=== PATIENT | male | born 1945 | race Caucasian/White ===

== ENCOUNTER 2023-07-19 12:27 | Outpatient (CLI) | payer MEDICARE | END 2023-07-19 12:28 | disposition home or self-care (01) | LOC: CSHULT 12:27 | PROVIDERS: ATTEND Family Medicine | DX: I65.23 Occlusion and stenosis of bilateral carotid arteries (principal) | CPT/HCPCS: 93880 ==

== ENCOUNTER 2023-08-24 13:12 | Outpatient (CLI) | payer MEDICARE ==
[2023-08-24 14:10] LABS: Hematocrit 46.4 % (38.8-50.0); Hemoglobin 15.4 g/dL (13.5-17.5)
[2023-08-24 14:37] LABS: Anion Gap 12 mmol/L (10-20); BUN (Urea Nitrogen) 11 mg/dL (8.4-25.7); Calc. Creatinine Clearance 0 mL/min (70-130); Calcium 9.3 mg/dL (7.8-10.44); Carbon Dioxide 24 mmol/L (23-31); Chloride 105 mmol/L (98-107); Estimated GFR 65; Glucose 93 mg/dL (83-110); Potassium 4.4 mmol/L (3.5-5.1); Sodium 137 mmol/L (136-145)
== END 2023-08-24 13:13 | disposition home or self-care (01) ==
LOC: CSHLAB 13:12
PROVIDERS: ATTEND Otolaryngology Plastic Surgery within the Head & Neck
DX: Z01.818 Encounter for other preprocedural examination (principal); K11.8 Other diseases of salivary glands
CPT/HCPCS: 80048; 85014; 85018; 93005; 93010

== ENCOUNTER 2023-08-29 05:34 | Day surgery (SDC) | payer MEDICARE ==
[2023-08-24 13:34] VITALS: BMI 30.7
[2023-08-29] MEDS ORDERED: Sevoflurane 250 ML INH ANEST BOTTLE ONE (06:18)
[2023-08-29] MEDS ORDERED: Dexmedetomidine 200 MCG/2 ML VIAL ONE (06:18)
[2023-08-29] MEDS ORDERED: Lidocaine 4% Topical Sol 50 ML BOT ONE (06:18)
[2023-08-29] MEDS ORDERED: Ondansetron PF 4 MG/2 ML Vial ONE (06:27)
[2023-08-29] MEDS ORDERED: Midazolam HCl 2 mg/2 ml Vial ONE (06:27)
[2023-08-29] MEDS ORDERED: PROPOFOL 20 ML ONE ×2 (06:27→07:47)
[2023-08-29] MEDS ORDERED: Fentanyl 250 MCG/5 ML VIAL ONE (06:27)
[2023-08-29] MEDS ORDERED: PHENYLEPHRINE-NS 100 MCG/ML 10 ML SYRINGE ONE (06:27)
[2023-08-29] MEDS ORDERED: Dexamethasone 20 MG/5 ML VIAL ONE (06:27)
[2023-08-29] MEDS ORDERED: Rocuronium Bromide 10 MG/ML (10ML VIAL) ONE (06:27)
[2023-08-29] MEDS ORDERED: Lidocaine 1% PF 5 ML VIAL ONE (06:27)
[2023-08-29] MEDS ORDERED: Lidocaine 1% w/Epinephrine 1:100K 20 ML VIAL ONE (06:29)
[2023-08-29] MEDS ORDERED: Mupirocin 2% Ointment 22 GM Tube ONE (06:29)
[2023-08-29] MEDS ORDERED: CEFAZOLIN 2 GM VIAL ONE (06:29)
[2023-08-29] MEDS ORDERED: ePHEDrine Sulfate 50 MG/10 ML VIAL ONE (07:27)
[2023-08-29] MEDS ORDERED: fentaNYL 50 mcg/mL 1 mL Vial ONE (09:36)
[2023-08-29] MEDS ORDERED: HYDROcodone/Acetaminophen 5/325 mg Tablet ONE (10:39)
== END 2023-08-29 11:15 | disposition home or self-care (01) ==
LOC: CSHSDC 05:34
PROVIDERS: ATTEND Otolaryngology Plastic Surgery within the Head & Neck
PROC: 0CTB0ZZ Resection of Right Parotid Duct, Open Approach (ICD-10-PCS; principal; 2023-08-29)
DX: D11.9 Benign neoplasm of major salivary gland, unspecified (principal); K11.8 Other diseases of salivary glands; I10 Essential (primary) hypertension; E78.00 Pure hypercholesterolemia, unspecified; Z79.899 Other long term (current) drug therapy
CPT/HCPCS: 42415; J3010; 88307; J1100; J2250; J2405; J2704